=== PATIENT | female | born 2000 | race Native Hawaiian/Other Pacific Islander ===

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

== ENCOUNTER 2021-04-06 05:52 | Emergency (ER) | payer OTHER ==
[~2021-04-06] VITALS: Ht 162.6 cm; Wt 69.4 kg
[2021-04-06 06:06] VITALS: TEMP 99
[2021-04-06 06:43] LABS: PLATELET COUNT 174 K/uL (152-353)
[2021-04-06 06:51] LABS: POTASSIUM 2.9 mmol/L (3.6-5.2)
[2021-04-06 08:04] LABS: PARTIAL THROMBOPLASTIN TIME 24.5 SECONDS (24.5-33.6)
[2021-04-06 09:20] VITALS: BP 112/68
== END 2021-04-06 09:20 | disposition home or self-care (01) ==
LOC: ED 05:52
PROVIDERS: Hospitalist
DX: O23.43 Unspecified infection of urinary tract in pregnancy, third trimester (principal); N39.0 Urinary tract infection, site not specified; E87.6 Hypokalemia
CPT/HCPCS: 80053; 80307; 80320; 81000; 84702; 85027; 85610; 85730; 87077; 87086; 87088; 87186; 96360; 96365; 96366; 96375; 99284; J0132; J0696; J2405

== ENCOUNTER 2022-05-07 10:04 | Emergency (ER) | payer OTHER ==
[~2022-05-07] VITALS: Ht 162.6 cm; Wt 53.5 kg
[2022-05-07 10:15] VITALS: TEMP 97.3
[2022-05-07 10:39] LABS: PLATELET COUNT 387 K/uL (152-353)
[2022-05-07] MEDS ORDERED: PROM25SU RE (13:29)
[2022-05-07] MEDS ORDERED: ONDA4TAB3 PO (13:29)
[2022-05-07] MEDS ORDERED: PANTOPRAZOLE 40MG TA PO (13:29)
[2022-05-07] MEDS ORDERED: K-TAB20 MEQ PO (13:29)
[2022-05-07 13:50] VITALS: BP 130/88
[2022-05-08] MEDS ORDERED: LEVO-T25 MCG PO (15:05)
== END 2022-05-07 13:50 | disposition home or self-care (01) ==
LOC: ED 10:04
PROVIDERS: Emergency Medicine Emergency Medical Services
DX: K29.00 Acute gastritis without bleeding (principal)
CPT/HCPCS: 80053; 81002; 81025; 82150; 83690; 83735; 84484; 85027; 93005; 96361; 96365; 96372; 96375; 99284; J1885; J2405; J2550; J3490

== ENCOUNTER 2022-05-08 09:51 | Observation (INO) | payer OTHER ==
[2022-05-08] VITALS (8 sets, daily range): BP systolic 105–155; BP diastolic 60–95; TEMP 98–98.7; Ht 165.1 cm; Wt 50.3 kg
[~2022-05-08] VITALS: Ht 165.1 cm; Wt 50.3 kg
[~2022-05-08 09:51] MED LIST changes: +K-TAB20 MEQ PO; +ONDA4TAB3 PO; +PANTOPRAZOLE 40MG TA PO; +PROM25SU RE
[2022-05-08] MEDS ORDERED: LEVO-T25 MCG PO (15:05)
[2022-05-09] VITALS: BP 149/80; TEMP 98.9
[2022-05-09 04:00] VITALS: BP 130/79; TEMP 99.1
[2022-05-09 04:43] LABS: PLATELET COUNT 267 K/uL (152-353)
[2022-05-09 08:00] VITALS: BP 152/100; TEMP 98.6
[2022-05-09 12:00] VITALS: BP 117/76; TEMP 98.3
[2022-05-09] MEDS ORDERED: PANTOPRAZOLE 40MG TA PO (15:12)
[2022-05-09] MEDS ORDERED: ONDA4TAB3 SL (15:15)
[2022-05-09] MEDS ORDERED: PROM25SU RE (15:16)
[2022-05-09] MEDS ORDERED: POT CHLORIDE10 MEQ PO (15:30)
== END 2022-05-09 16:30 | disposition home or self-care (01) ==
LOC: ED 09:51 → MED/SURG 12:25
PROVIDERS: ADMIT Internal Medicine; ATTEND Internal Medicine
DX: R11.2 Nausea with vomiting, unspecified (principal); E03.8 Other specified hypothyroidism; F41.8 Other specified anxiety disorders; R00.1 Bradycardia, unspecified
CPT/HCPCS: 36415; 80053; 80307; 81000; 83690; 84439; 84443; 85027; 87635; 96361; 96367; 96372; 96374; 96375; 96376; 99220; 99284; G0378; J0132; J1630; J1885; J2270; J2405; J2550; J2765; J3490; U0003

== ENCOUNTER 2022-11-03 10:59 | Observation (INO) | payer OTHER ==
[~2022-11-03] VITALS: Ht 165.1 cm; Wt 46.4 kg
[~2022-11-03 10:59] MED LIST changes: +LEVO-T25 MCG PO; +ONDA4TAB3 SL; +POT CHLORIDE10 MEQ PO
[2022-11-03 11:00] VITALS: BP 135/88; TEMP 98
[2022-11-03 11:34] LABS: PLATELET COUNT 324 K/uL (152-353)
[2022-11-03 11:39] LABS: POTASSIUM 3.5 mmol/L (3.6-5.2)
[2022-11-03 15:27] VITALS: BP 129/66; TEMP 98.5; Ht 165.1 cm; Wt 46.4 kg
[2022-11-03] MEDS ORDERED: PROM12.510 RE (15:51)
[2022-11-03 16:00] VITALS: BP 85/45; TEMP 98.7
== END 2022-11-03 17:32 | disposition home or self-care (01) ==
LOC: ED 10:59 → MED/SURG 13:26
PROVIDERS: Family Medicine; ADMIT Internal Medicine; ATTEND Internal Medicine
DX: R11.2 Nausea with vomiting, unspecified (principal); F12.10 Cannabis abuse, uncomplicated
CPT/HCPCS: 36415; 80053; 80307; 81002; 81025; 83690; 85027; 96361; 96372; 96374; 96375; 96376; 99221; 99284; G0378; J1200; J1630; J1885; J2405; J2765; Q9963